=== PATIENT | female | born 1950 ===

== ENCOUNTER 2019-09-14 09:53 | Day surgery (SDC) | payer OTHER ==
[~2019-09-14 09:53] MED LIST: Buffered Lidocaine 1% SYRIN* 1 ML/SYRINGE INTRADERM ONE; Famotidine IV* 10 MG/ML 2 ML (20 mg) IV ONE; Lactated Ringers 1000 ML Bag* 1,000 ML IV SCH
[2019-09-14] MEDS ORDERED: Midazolam* 1 MG/ML 5 ML VIAL (5 MG) ONE (10:31)
[2019-09-14] MEDS ORDERED: Clindamycin 900 MG/D5W BAG(*) 900 MG/50 ML BAG IVPB ONE (10:38)
[2019-09-14] MEDS ORDERED: Famotidine IV* 10 MG/ML 2 ML (20 mg) ONE (10:39)
[2019-09-14] MEDS ORDERED: Bupivacaine 0.25% SDV* 30 ML ONE (11:28)
[2019-09-14] MEDS ORDERED: fentaNYL* 50 MCG/ML 2 ML VIAL (100 MCG VIAL) ONE (12:44)
[2019-09-14] MEDS ORDERED: Ondansetron INJ* 2 MG/ML VIAL ONE (13:02)
[2019-09-14] MEDS ORDERED: Dexamethasone IV* 4 MG/ML 1 ML (4 MG) ONE (13:02)
[2019-09-14] MEDS ORDERED: Ketorolac INJ* 30 MG/ML 1 ML VIAL ONE (13:02)
[2019-09-14] MEDS ORDERED: Propofol* 10 MG/ML 20 ML BTL ONE (13:02)
[2019-09-14] MEDS ORDERED: DiMENhydriNATE IV* 50 MG/ML VIAL ONE (13:02)
[2019-09-14] MEDS ORDERED: Lidocaine 2% PF * 5 ML VIAL ONE (13:02)
[2019-09-14] MEDS ORDERED: traMADol TAB* 50 MG ONE (15:05)
[2019-09-14 15:37] VITALS: BP 110/60
--- NOTE | 2019-09-15 01:58 | OP ---
DATE OF OPERATION: 09/14/19 - [facility] DATE OF : 54 SURGEON: Norris Zhang MD ASSISTANTS: MANOLO Martinez and MANOLO Tan student. An investigative assistant was needed for the procedure to aid in positioning of the arm and retraction. ANESTHESIOLOGIST: Dr. Sewell. ANESTHESIA: General. PRE-OP DIAGNOSES: 1. Right thumb carpometacarpal stage III arthritis. 2. Right carpal tunnel syndrome. POST-OP DIAGNOSES: 1. 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 2. Right carpal tunnel syndrome. OPERATIVE PROCEDURE: 1. Right thumb carpometacarpal arthroplasty with trapeziectomy. 2. Right distally based split flexor carpi radialis tendon transfer for thumb suspension and tendon interposition. 3. Right endoscopic carpal tunnel release. INDICATIONS: Ms. Amaya has very severe thumb base arthritis and carpal tunnel syndrome. We talked about treatment options. She wanted to proceed with surgery. She understands the risks. ESTIMATED BLOOD LOSS: 2 mL. COMPLICATIONS: None. FINDINGS: See above and below. DESCRIPTION OF PROCEDURE: Ms. Amaya was seen in the preoperative holding area. The correct site, side, and procedures were identified. We came back to the operating room where the arm was prepped and draped in the usual fashion and a time- out was performed. The arm was exsanguinated with the Esmarch and the tourniquet was inflated. I first made a 1 cm transverse incision just ulnar to the palmaris longus tendon. Distal antebrachial fascia was split transversely bluntly with the tenotomy scissors. A skin hook was placed underneath the fascia. I then dilated open the carpal tunnel and then the MicroAire endoscopic carpal tunnel system was introduced. When I had it in the appropriate location, I elevated the blade and the release was performed from distal to proximal. Once I had fully released the ligament distally, I released the distal antebrachial fascia proximally. Once I had confirmed the release to be excellent, I irrigated out the wound and turned my attention to the thumb. I made a longitudinal incision over the thumb metacarpal base dorsoradially. Dissection was carried down. The radial artery was mobilized. The traversing sensory nerves were preserved. I then raised subperiosteal and capsular flaps off the trapezium. Once I had released the soft tissue all about the margins of the trapezium, I went ahead and excised the trapezium in piecemeal fashion. The FCR tendon was preserved in the base of the wound as were the cartilage surfaces. Once I had excised the entirety of the trapezium, I noted full- thickness cartilage loss on the distal pole of the scaphoid. I had my investigative assistant pull longitudinal traction on the second ray and placed a Broadview elevator in the joint, so I could get a good look of the cartilage on the distal pole of the scaphoid. I looked intact, so I did not perform a partial trapeziectomy. I then used my sequentially larger drill bits to create a bone tunnel from the dorsoradial thumb metacarpal base exiting out the volar ulnar articular surface near the insertion of the FCR tendon. I then turned my attention to the tendon transfer. I made a 1 cm transverse incision distally over the FCR tendon. I made 2 more transverse incisions each about a centimeter and about 7 or 8 cm proximal to the last. The sheath was released along the entirety of the FCR tendon. The tendon was pulled up out of the distal wound and split longitudinally with a 15-blade and then a 26-gauge wire was passed into the tendon split. The Gracia clamp was passed from the proximal down to the distal wounds and the 26- gauge wire was pulled up into the proximal wound splitting the tendon along the course of the tendon and releasing half the tendon at the musculotendinous junction. The free end of the tendon was then shuttled down to the thumb base wound using two 26-gauge wires. The tendon split was completed down to the base of the second metacarpal. I then passed the free end of the tendon though the bone tunnel and back around the intact limb. Then, maximum tension was set as the tendon transfer was secured with 3 [id number] 3-0 Ethibond sutures, the first sewing all 3 limbs of the tendon transfer together, the last 2 sewing intact limb to intact limb. The remainder of the tendon was rolled up as a ball and secured with an Ethibond suture and then docked as an interposition just proximal to the base of the metacarpal. At this point, everything was looking very good. The wound was irrigated out. The capsule was closed with 4- 0 Vicryl suture. All the wounds were irrigated out and the skin was closed with 4-0 nylon suture. 0.25% Marcaine was infiltrated all around the operative areas. Wounds were dressed with Xeroform, 4x4, sterile Webril, and a thumb spica splint with the IP joint free was applied. She was taken to the recovery room in stable condition. [id number]/[facility] #: [id number] JEROME
== END 2019-09-14 15:54 | disposition home or self-care (01) ==
LOC: OREAST 09:53
PROVIDERS: ATTEND Orthopaedic Surgery Hand Surgery
DX: M18.11 Unilateral primary osteoarthritis of first carpometacarpal joint, right hand (principal); G56.01 Carpal tunnel syndrome, right upper limb; Z88.0 Allergy status to penicillin; I10 Essential (primary) hypertension; K21.0 Gastro-esophageal reflux disease with esophagitis; K22.70 Barrett's esophagus without dysplasia; M19.90 Unspecified osteoarthritis, unspecified site; K50.90 Crohn's disease, unspecified, without complications
CPT/HCPCS: 88304; 88311; A9270-GY; J1100; J1240; J1885; J2250; J2405; J2704; J3010; J3490